=== PATIENT | male | born 1980 ===

== ENCOUNTER 2023-05-07 18:45 | Emergency (ER) | payer OTHER ==
[2023-05-07] MEDS ORDERED: Sodium Chloride 0.9% 10 ML Syringe FLUSH PRN (18:57)
[2023-05-07 19:42] LABS: BASOPHILS ABSOLUTE AUTO 0.03 K/mm3 (0.01-0.08); BASOPHILS PERCENT AUTO 0.4 % (0.1-1.2); EOSINOPHILS ABSOLUTE AUTO 0.17 K/mm3 (0.04-0.54); EOSINOPHILS PERCENT AUTO 2.5 (0.8-7.0); HEMATOCRIT 41.9 % (40.1-51.0); HEMOGLOBIN 14.4 gm/dl (13.7-17.5); IMMATURE GRAN ABSOLUTE AUTO 0.01 K/mm3 (0.00-0.10); IMMATURE GRAN PERCENT AUTO 0.1 % (<=1.0); LYMPHOCYTES ABSOLUTE AUTO 1.96 K/mm3 (1.32-3.57); LYMPHOCYTES PERCENT AUTO 28.9 % (21.8-53.1); MEAN CORPUSCULAR HEMOGLOBIN 30.4 pg (25.7-32.2); MEAN CORPUSCULAR HGB CONC 34.4 g/dl (32.2-35.5); MEAN CORPUSCULAR VOLUME 88.4 fl (79.0-92.2); MEAN PLATELET VOLUME 9.9 fl (9.4-12.3); MONOCYTES ABSOLUTE AUTO 0.38 K/mm3 (0.30-0.82); MONOCYTES PERCENT AUTO 5.6 % (5.3-12.2); NEUTROPHILS ABSOLUTE AUTO 4.24 K/mm3 (1.78-5.38); NEUTROPHILS PERCENT AUTO 62.5 % (34.0-67.9); PLATELET COUNT,PLT 209 K/mm3 (163-337); RED BLOOD CELL COUNT 4.74 M/mm3 (4.63-6.08); WHITE BLOOD CELL COUNT,WBC 6.79 K/mm3 (4.23-9.07)
[2023-05-07 20:19] LABS: INR 1.07; PROTHROMBIN TIME 11.4 SECONDS (9.7-12.0)
[2023-05-07 20:21] LABS: PTT,PARTIAL THROMBOPLSTIN TIME 25.6 SECONDS (21.7-31.4)
[2023-05-07 20:24] LABS: A/G RATIO 1.5 (1-2); ALBUMIN 4.5 g/dl (3.4-5.0); ANION GAP 15.2 (5-15); BILIRUBIN TOTAL 0.9 mg/dL (0.2-1.0); BUN/CREATININE RATIO 13.1 (14-18); CALCIUM 9.1 mg/dL (8.5-10.1); CREATININE 1.3 mg/dL (0.7-1.3); EST CRCL DRUG DOSING (CG) 92.74 mL/min; MAGNESIUM 2.1 mg/dL (1.8-2.4); POTASSIUM,K 3.2 mEq/L (3.5-5.1); PROTEIN TOTAL,TP 7.6 g/dl (6.4-8.2)
[2023-05-07] MEDS ORDERED: Potassium Chloride 20 MEQ Tab.ER PO ONE (20:46)
== END 2023-05-07 21:11 | disposition home or self-care (01) ==
LOC: JD.ED 18:45
DX: R00.2 Palpitations (principal); R07.89 Other chest pain
CPT/HCPCS: 36415; 71045; 80053; 83735; 83880; 84443; 84484; 85025; 85610; 85730; 93005; 93246; 99285; A9270; J3490; 93010; 99283